=== PATIENT | female | born 1945 | race Caucasian/White ===

== ENCOUNTER 2023-07-13 15:15 | Inpatient (IN) | payer BC ==
[~2023-07-13] VITALS: Ht 170.2 cm; Wt 54.4 kg
[2023-07-13] MEDS ORDERED: ONDANSETRON 4 MG/2 ML VIAL IV ONE (15:45)
[2023-07-13] MEDS ORDERED: IV NS 1000 ML 1,000 ML IV ONE ×2 (15:45→17:30)
[2023-07-13] MEDS ORDERED: THYR90TA PO (15:46)
[2023-07-13] MEDS ORDERED: ONDANSETRON 4 MG/2 ML VIAL ONE (16:04)
[2023-07-13 16:53] LABS: WHITE BLOOD COUNT (AUTO) 2.3 K/uL (3.8-11.8)
[2023-07-13 17:00] LABS: BASOPHILS % (AUTO) 0.5 % (0.0-2.0); HEMATOCRIT 40.5 % (31.2-41.9); HEMOGLOBIN 13.8 g/dL (10.9-14.3); LYMPHOCYTES # (AUTO) 0.3 K/uL (0.8-4.8); LYMPHOCYTES % (AUTO) 12.1 % (20.5-51.5); MEAN CORPUSCULAR HEMOGLOBIN 33.2 uug (24.7-32.8); MEAN CORPUSCULAR HGB CONC 34 g/dL (32.3-35.6); MEAN CORPUSCULAR VOLUME 97.5 fL (75.5-95.3); MONOCYTES # (AUTO) 0.2 K/uL (0.1-1.30); MONOCYTES % (AUTO) 10.6 % (0.0-11.0); NEUTROPHILS # (AUTO) 1.8 K/uL (1.8-8.9); NEUTROPHILS % (AUTO) 76.8 % (38.5-71.5); PLATELET COUNT (AUTO) 107 K/uL (179-408); RED BLOOD CELL COUNT(AUTO) 4.15 MIL/uL (3.63-4.92); RED CELL DISTRIBUTION WIDTH 14.7 % (12.3-17.7)
[2023-07-13 17:01] LABS: DIFFERENTIAL COMMENT 1
[2023-07-13 17:03] LABS: CALCIUM 8.1 mg/dL (8.5-10.1); CARBON DIOXIDE 23 mmol/L (21-32); CHLORIDE 99 mmol/L (98-107); CREATININE 0.7 mg/dL (0.6-1.3); GLUCOSE 121 mg/dL (74-106); POTASSIUM 3.1 mmol/L (3.5-5.1); SODIUM SERUM 134 mmol/L (136-145); UREA NITROGEN, BLOOD 28 mg/dL (7-18)
[2023-07-13] MEDS ORDERED: POTASSIUM BICARBONATE/CIT AC 25 MEQ TABLET.EFF ONE (17:28)
[2023-07-13] MEDS ORDERED: POTASSIUM BICARBONATE/CIT AC 25 MEQ TABLET.EFF PO ONE (17:30)
[2023-07-13] MEDS ORDERED: CHOLECALCIFEROL 1,000 UNIT TABLET PO SCH (17:30)
[2023-07-13] MEDS ORDERED: CHOLECALCIFEROL 1,000 UNIT TABLET ONE (17:31)
[2023-07-13 19:03] LABS: ALBUMIN 2.8 g/dL (3.4-5.0); BILIRUBIN,DIRECT 0.5 mg/dL (0.0-0.2); TOTAL PROTEIN, SERUM 6.3 g/dL (6.4-8.2)
[2023-07-13 19:13] LABS: *CLARITY,URINE CLEAR (CLEAR); *COLOR,URINE YELLOW (YELLOW); *KETONES,URINE 2+ (NEGATIVE); *PROTEIN,URINE 2+ (NEGATIVE); LEUKOCYTE ESTERASE ,URINE TRACE (NEGATIVE); NITRITE, URINE NEGATIVE (NEGATIVE); UGLUCOSE NEGATIVE (NEGATIVE)
[2023-07-13 19:16] LABS: *BILIRUBIN,URIN 1+ (NEGATIVE); *BLOOD, URINE TRACE (NEGATIVE)
[2023-07-13 19:47] LABS: BACTERIA,URINE FEW /HPF (NONE SEEN); SQUAMOUS EPITHELIAL CELL,UR FEW /HPF (NONE SEEN)
[2023-07-13] MEDS ORDERED: ONDANSETRON 4 MG/2 ML VIAL IV PRN (22:15)
[2023-07-13] MEDS ORDERED: ALBUTEROL SULFATE 2.5 MG/ 0.5 ML NEBU NEB PRN (22:15)
[2023-07-13] MEDS ORDERED: ACETAMINOPHEN 325 MG TABLET PO PRN (22:15)
[2023-07-13] MEDS ORDERED: MORPHINE SULFATE 2 MG/1 ML DISP.SYRIN IV PRN (22:15)
[2023-07-13] MEDS ORDERED: CEFTRIAXONE /D5W 50ML IVPB **ER PYXIS IV ONE (23:18)
[2023-07-13] MEDS: CEFTRIAXONE 1 G in IV DEXTROSE 5% 50 ML IV SCH (23:27)
[2023-07-13 23:30] VITALS: BP 136/76; TEMP 98.7; O2SAT 95
[2023-07-14 04:00] VITALS: BP 134/67; TEMP 100.1; O2SAT 92
[2023-07-14 06:11] VITALS: TEMP 99
[2023-07-14] MEDS: PANTOPRAZOLE SODIUM 40 MG TABLET.DR PO SCH (06:23)
[2023-07-14 07:27] LABS: BASOPHILS % (AUTO) 0.3 % (0.0-2.0); EOSINOPHILS % (AUTO) 0.1 % (0.0-7.0); HEMATOCRIT 38.9 % (31.2-41.9); HEMOGLOBIN 13.3 g/dL (10.9-14.3); LYMPHOCYTES # (AUTO) 0.3 K/uL (0.8-4.8); LYMPHOCYTES % (AUTO) 11.8 % (20.5-51.5); MEAN CORPUSCULAR HEMOGLOBIN 33.5 uug (24.7-32.8); MEAN CORPUSCULAR HGB CONC 34 g/dL (32.3-35.6); MEAN CORPUSCULAR VOLUME 98.4 fL (75.5-95.3); MONOCYTES # (AUTO) 0.3 K/uL (0.1-1.30); MONOCYTES % (AUTO) 12.6 % (0.0-11.0); NEUTROPHILS # (AUTO) 1.6 K/uL (1.8-8.9); NEUTROPHILS % (AUTO) 75.2 % (38.5-71.5); PLATELET COUNT (AUTO) 111 K/uL (179-408); RED BLOOD CELL COUNT(AUTO) 3.96 MIL/uL (3.63-4.92); RED CELL DISTRIBUTION WIDTH 15.2 % (12.3-17.7); WHITE BLOOD COUNT (AUTO) 2.1 K/uL (3.8-11.8)
[2023-07-14 07:50] LABS: DIFFERENTIAL COMMENT 1
[2023-07-14 07:52] LABS: THYROID STIMULATING HORMONE 1.295 mIU/mL (0.358-3.740)
[2023-07-14 08:03] LABS: IRON, SERUM 30 ug/dL (50-175)
[2023-07-14 08:14] LABS: ALANINE AMINOTRANSFERASE 46 U/L (14-59); ALBUMIN 2.4 g/dL (3.4-5.0); ALKALINE PHOSPHATASE 132 U/L (50-136); ASPARTATE AMINOTRANSFERASE 49 U/L (15-37); BILIRUBIN,TOTAL 0.5 mg/dL (0.2-1.0); CALCIUM 7.8 mg/dL (8.5-10.1); CARBON DIOXIDE 28 mmol/L (21-32); CHLORIDE 101 mmol/L (98-107); CHOLESTEROL 120 mg/dL (<200); CREATININE 0.7 mg/dL (0.6-1.3); GLUCOSE 118 mg/dL (74-106); HDL CHOLESTEROL 41 mg/dL (40-60); MAGNESIUM 2.3 mg/dL (1.8-2.4); NT-PRO BNP 712 pg/mL (0-125); PHOSPHOROUS 2.5 mg/dL (2.5-4.9); POTASSIUM 3.7 mmol/L (3.5-5.1); SODIUM SERUM 135 mmol/L (136-145); TOTAL PROTEIN, SERUM 5.7 g/dL (6.4-8.2); TRIGLYCERIDES 73 MG/DL (30-150); UREA NITROGEN, BLOOD 25 mg/dL (7-18)
[2023-07-14] MEDS: ENOXAPARIN SODIUM 40 MG/0.4 ML DISP.SYRIN SQ SCH (08:54)
[2023-07-14 11:33] VITALS: BP 126/68; TEMP 98.6; O2SAT 89
[2023-07-14 15:38] VITALS: BP 137/72; TEMP 99; O2SAT 93
[2023-07-14 20:00] VITALS: BP 124/75; TEMP 99.5; O2SAT 94
[2023-07-14] MEDS: DOCUSATE SODIUM 100 MG CAPSULE PO SCH (21:10)
[2023-07-14] MEDS: CEFTRIAXONE 1 G in IV DEXTROSE 5% 50 ML IV SCH (21:14)
[2023-07-15] VITALS: BP 133/67; TEMP 98.6; O2SAT 94
[2023-07-15 04:00] VITALS: BP 123/84; TEMP 97.6; O2SAT 93
[2023-07-15] MEDS: PANTOPRAZOLE SODIUM 40 MG TABLET.DR PO SCH (06:44)
[2023-07-15] MEDS: THYROID 60 MG TABLET PO SCH (06:44)
[2023-07-15 07:06] LABS: CALCIUM 8.2 mg/dL (8.5-10.1); CARBON DIOXIDE 26 mmol/L (21-32); CHLORIDE 99 mmol/L (98-107); CREATININE 0.6 mg/dL (0.6-1.3); GLUCOSE 105 mg/dL (74-106); POTASSIUM 2.9 mmol/L (3.5-5.1); UREA NITROGEN, BLOOD 21 mg/dL (7-18)
[2023-07-15 07:19] LABS: LYMPHOCYTES # (AUTO) 0.3 K/uL (0.8-4.8); MEAN CORPUSCULAR HEMOGLOBIN 33.7 uug (24.7-32.8); MONOCYTES # (AUTO) 0.2 K/uL (0.1-1.30); NEUTROPHILS # (AUTO) 0.8 K/uL (1.8-8.9)
[2023-07-15 07:21] LABS: BASOPHILS % (AUTO) 0.7 % (0.0-2.0); HEMATOCRIT 39.6 % (31.2-41.9); HEMOGLOBIN 13.5 g/dL (10.9-14.3); LYMPHOCYTES % (AUTO) 19.9 % (20.5-51.5); MEAN CORPUSCULAR HGB CONC 34 g/dL (32.3-35.6); MEAN CORPUSCULAR VOLUME 98.4 fL (75.5-95.3); MONOCYTES % (AUTO) 18.3 % (0.0-11.0); NEUTROPHILS % (AUTO) 61.1 % (38.5-71.5); PLATELET COUNT (AUTO) 122 K/uL (179-408); RED BLOOD CELL COUNT(AUTO) 4.02 MIL/uL (3.63-4.92); RED CELL DISTRIBUTION WIDTH 14.9 % (12.3-17.7)
[2023-07-15 07:30] LABS: SODIUM SERUM 113 mmol/L (136-145)
[2023-07-15 07:31] LABS: DIFFERENTIAL COMMENT 1; WHITE BLOOD COUNT (AUTO) 1.3 K/uL (3.8-11.8)
[2023-07-15] MEDS ORDERED: POTASSIUM CHLORIDE 20 MEQ TAB.PRT.SR PO ONE (08:00)
[2023-07-15] MEDS: ENOXAPARIN SODIUM 40 MG/0.4 ML DISP.SYRIN SQ SCH (09:27)
[2023-07-15 09:42] LABS: URIC ACID 1.9 mg/dL (2.6-6.0)
[2023-07-15 09:52] LABS: THYROID STIMULATING HORMONE 1.111 mIU/mL (0.358-3.740)
[2023-07-15 11:30] VITALS: BP 124/70; TEMP 98.6; O2SAT 94
[2023-07-15] MEDS ORDERED: MAGNESIUM HYDROXIDE 30 ML LIQUID UDC PO PRN (12:00)
[2023-07-15 12:41] LABS: CALCIUM 9.5 mg/dL (8.5-10.1); CARBON DIOXIDE 24 mmol/L (21-32); CHLORIDE 102 mmol/L (98-107); CREATININE 0.7 mg/dL (0.6-1.3); GLUCOSE 121 mg/dL (74-106); POTASSIUM 4.1 mmol/L (3.5-5.1); SODIUM SERUM 138 mmol/L (136-145); UREA NITROGEN, BLOOD 15 mg/dL (7-18)
[2023-07-15 15:43] LABS: BAND % (MANUAL) 2 % (0-10); LYMPHOCYTES % (MANUAL) 24 % (20-40); MONOCYTES % (MANUAL) 14 % (2-10)
[2023-07-15 15:44] LABS: NEUTROPHILS % (MANUAL) 60 % (42-75); PLATELET ESTIMATE DECREASED
[2023-07-15 16:30] VITALS: BP 135/81; TEMP 98.9; O2SAT 93
[2023-07-15 20:00] VITALS: BP 133/76; TEMP 97.9; O2SAT 93
[2023-07-15] MEDS ORDERED: ALBUTEROL SULFATE 8 GM HFA.AER.AD IH PRN (20:30)
[2023-07-15] MEDS ORDERED: GUAIFENESIN/DEXTROMETHORPHAN 5 ML UDC PO PRN (20:30)
[2023-07-15] MEDS: DOCUSATE SODIUM 100 MG CAPSULE PO SCH (21:08)
[2023-07-15] MEDS ORDERED: ALBUTEROL SULFATE 8 GM HFA.AER.AD ONE (21:38)
[2023-07-16] VITALS: BP 130/71; TEMP 98.4; O2SAT 94
[2023-07-16 04:00] VITALS: BP 128/77; TEMP 98.2; O2SAT 93
[2023-07-16] MEDS: THYROID 60 MG TABLET PO SCH (06:25)
[2023-07-16] MEDS: PANTOPRAZOLE SODIUM 40 MG TABLET.DR PO SCH (06:25)
[2023-07-16 07:52] LABS: BASOPHILS % (AUTO) 0.1 % (0.0-2.0); EOSINOPHILS % (AUTO) 0.1 % (0.0-7.0); HEMATOCRIT 40.1 % (31.2-41.9); HEMOGLOBIN 13.7 g/dL (10.9-14.3); LYMPHOCYTES # (AUTO) 0.3 K/uL (0.8-4.8); LYMPHOCYTES % (AUTO) 20.3 % (20.5-51.5); MEAN CORPUSCULAR HEMOGLOBIN 33.5 uug (24.7-32.8); MEAN CORPUSCULAR HGB CONC 34 g/dL (32.3-35.6); MEAN CORPUSCULAR VOLUME 98.1 fL (75.5-95.3); MONOCYTES # (AUTO) 0.2 K/uL (0.1-1.30); MONOCYTES % (AUTO) 13.9 % (0.0-11.0); NEUTROPHILS % (AUTO) 65.6 % (38.5-71.5); PLATELET COUNT (AUTO) 138 K/uL (179-408); RED BLOOD CELL COUNT(AUTO) 4.09 MIL/uL (3.63-4.92); RED CELL DISTRIBUTION WIDTH 15.2 % (12.3-17.7)
[2023-07-16 08:05] LABS: CALCIUM 8.6 mg/dL (8.5-10.1); CARBON DIOXIDE 26 mmol/L (21-32); CHLORIDE 104 mmol/L (98-107); CREATININE 0.5 mg/dL (0.6-1.3); GLUCOSE 111 mg/dL (74-106); PHOSPHOROUS 2.6 mg/dL (2.5-4.9); SODIUM SERUM 140 mmol/L (136-145); UREA NITROGEN, BLOOD 22 mg/dL (7-18)
[2023-07-16] MEDS: ENOXAPARIN SODIUM 40 MG/0.4 ML DISP.SYRIN SQ SCH (08:13)
[2023-07-16] MEDS: ENSURE ENLIVE (VAN) 240 ML LIQUID PO SCH ×2 (08:26→17:32)
[2023-07-16 09:14] LABS: DIFFERENTIAL COMMENT 1; WHITE BLOOD COUNT (AUTO) 1.5 K/uL (3.8-11.8)
[2023-07-16 10:29] LABS: *SODIUM RNDM,URINE 29 mmol/L (40-220)
[2023-07-16 11:42] VITALS: BP 130/77; TEMP 97.7; O2SAT 96
[2023-07-16 11:58] LABS: BAND % (MANUAL) 1 % (0-10); LYMPHOCYTES % (MANUAL) 19 % (20-40); MONOCYTES % (MANUAL) 16 % (2-10); NEUTROPHILS % (MANUAL) 64 % (42-75)
[2023-07-16 11:59] LABS: ANISOCYTOSIS 1+; PLATELET ESTIMATE DECREASED
[2023-07-16 15:42] VITALS: BP 134/64; TEMP 98.2; O2SAT 96
[2023-07-16 20:00] VITALS: BP 133/77; TEMP 98.5; O2SAT 94
[2023-07-16] MEDS: DOCUSATE SODIUM 100 MG CAPSULE PO SCH (20:53)
[2023-07-17] MEDS: THYROID 60 MG TABLET PO SCH (06:14)
[2023-07-17] MEDS: PANTOPRAZOLE SODIUM 40 MG TABLET.DR PO SCH (06:14)
[2023-07-17] MEDS: ENSURE ENLIVE (VAN) 240 ML LIQUID PO SCH (08:00)
[2023-07-17 08:30] VITALS: BP 124/76; TEMP 97.6; O2SAT 96
[2023-07-17] MEDS: ENOXAPARIN SODIUM 40 MG/0.4 ML DISP.SYRIN SQ SCH (09:35)
[2023-07-17 11:30] VITALS: BP 129/68; TEMP 98.2; O2SAT 92
[2023-07-17 11:37] LABS: HIV-1 p24 ANTIGEN NON REACTIVE (NONREACTIVE); HIV-1/2 ANTIBODY NON REACTIVE (NONREACTIVE)
== END 2023-07-17 16:30 | DRG 177 ==
LOC: ER 15:15 → TELE3 22:19
PROVIDERS: ADMIT Internal Medicine; ATTEND Internal Medicine
DX: U07.1 COVID-19 (principal); E43 Unspecified severe protein-calorie malnutrition; E87.1 Hypo-osmolality and hyponatremia; E86.0 Dehydration; E87.6 Hypokalemia; D69.6 Thrombocytopenia, unspecified; E03.9 Hypothyroidism, unspecified; E88.09 Other disorders of plasma-protein metabolism, not elsewhere classified; D70.9 Neutropenia, unspecified; R62.7 Adult failure to thrive; R79.89 Other specified abnormal findings of blood chemistry; Z79.890 Hormone replacement therapy; I48.91 Unspecified atrial fibrillation; Z91.81 History of falling; R53.1 Weakness
CPT/HCPCS: 36415; 70030-TC; 71045; 82533; 83550; 83735; 84100; 84300; 84443; 84484; 84550; 85025; 86140; 86803; 87040; 87798; 87806; 93005; A4606; A4663; G0378; J0696; J1650; J2405; J3535; J7040